=== PATIENT | male | born 1955 | race Caucasian/White ===

== ENCOUNTER 2017-11-02 00:24 | Inpatient (IN) | payer MEDICAID ==
[2017-11-02] VITALS (10 sets, daily range): BP systolic 93–105; BP diastolic 55–67
[~2017-11-02] VITALS: Ht 182.9 cm; Wt 104.0 kg
[2017-11-02] MEDS ORDERED: MODA100 PO (00:26)
[2017-11-02] MEDS ORDERED: ELVI1TAB3 PO (00:26)
[2017-11-02] MEDS ORDERED: depression PO (00:26)
[2017-11-02] MEDS ORDERED: DILTIAZEM HCL 5 MG/ML 5 ML VIAL IVP ONE ×2 (00:45→01:45)
[2017-11-02 01:01] LABS: ANION GAP 8 mmol/L (8-16); BASOPHILS % (AUTO) 0.8 % (0.0-2.0); CALCIUM, TOTAL 9.1 mg/dL (8.8-10.5); CARBON DIOXIDE 29 mmol/L (22-29); CHLORIDE 100 mmol/L (98-107); CREATININE 1.42 mg/dL (0.60-1.30); EOSINOPHILS % (AUTO) 1.2 % (1.0-6.0); GLOMERULAR FILTR. RATE CALC 51 mL/min (>60); GLUCOSE,RANDOM 129 mg/dL (70-110); HEMATOCRIT 38.1 % (41-53); HEMOGLOBIN 13.2 g/dL (13.5-17.5); LYMPHOCYTES # (AUTO) 2.9 K/uL (1.0-4.8); LYMPHOCYTES % (AUTO) 25.1 % (22.0-44.0); MEAN CORPUSCULAR HEMOGLOBIN 29.7 pg (26.0-34.0); MEAN CORPUSCULAR HGB CONC 34.6 G/dL (31.0-37.0); MEAN CORPUSCULAR VOLUME 86 fL (80-100); MONOCYTES % (AUTO) 8.9 % (2.0-9.0); NEUTROPHILS # (AUTO) 7.4 K/uL (1.8-7.7); PLATELET COUNT (AUTO) 213 K/uL (150-450); POTASSIUM 3.4 mmol/L (3.5-5.1); RED BLOOD CELL COUNT(AUTO) 4.43 MIL/uL (4.50-5.90); SODIUM SERUM 137 mmol/L (136-145); UREA NITROGEN, BLOOD 17 mg/dL (7-18)
[2017-11-02 01:03] LABS: PROTHROMBIN TIME 10.7 SEC (9.4-11.6)
[2017-11-02 01:25] LABS: ALANINE AMINOTRANSFERASE 37 U/L (12-78); ALBUMIN 3.6 g/dL (3.4-5.0); ALKALINE PHOSPHATASE 67 U/L (46-116); ASPARTATE AMINOTRANSFERASE 23 U/L (15-37); BILIRUBIN,TOTAL 0.4 mg/dL (0.1-1.0); CREATINE KINASE MB 4.5 ng/mL (0-5); CREATINE KINASE, TOTAL 206 U/L (39-308); TOTAL PROTEIN, SERUM 7.2 g/dL (6.4-8.2)
[2017-11-02] MEDS ORDERED: SODIUM CHLORIDE 0.9% 1,000 ML IV ONE (01:30)
[2017-11-02] MEDS ORDERED: POTASSIUM CHLORIDE 20 MEQ ER TABLET PO ONE (02:00)
[2017-11-02] MEDS ORDERED: DILTIAZEM HCL 125 MG in DEXTROSE 5%-WATER 100 ML IV SCH (02:30)
[2017-11-02] MEDS ORDERED: ENOXAPARIN SODIUM 100 MG/ML PF SYRINGE SQ SCH ×2 (02:45→09:00)
[2017-11-02] MEDS ORDERED: ACETAMINOPHEN 325 MG TABLET PO PRN (02:45)
[2017-11-02] MEDS ORDERED: ONDANSETRON HCL 4 MG/2 ML VIAL IVP PRN (02:45)
[2017-11-02] MEDS ORDERED: 0.9% SODIUM CHLORIDE 10 ML SYRINGE IVP PRN (02:45)
[2017-11-02] MEDS ORDERED: METOPROLOL TARTRATE 25 MG TABLET PO SCH (09:00)
[2017-11-02] MEDS ORDERED: ASPIRIN 325 MG TABLET PO SCH (09:00)
[2017-11-02] MEDS ORDERED: REGADENOSON 0.4 MG/5 ML PF SYRINGE IVP ONE ×2 (13:12→16:50)
[2017-11-02] MEDS ORDERED: AMINOPHYLLINE 25 MG/ML 10 ML VIAL IVP ONE (13:25)
[2017-11-02] MEDS ORDERED: AMINOPHYLLINE 25 MG/ML 10 ML VIAL IV ONE (16:50)
[2017-11-02] MEDS ORDERED: ASPI81 PO (18:22)
== END 2017-11-02 19:00 | disposition home or self-care (01) | DRG 201 ==
LOC: EMS 00:25 → 5N 02:30
PROVIDERS: ADMIT Family Medicine; ATTEND Family Medicine
DX: I48.91 Unspecified atrial fibrillation (principal); I50.9 Heart failure, unspecified; F32.9 Major depressive disorder, single episode, unspecified; N28.9 Disorder of kidney and ureter, unspecified; J98.11 Atelectasis; F17.298 Nicotine dependence, other tobacco product, with other nicotine-induced disorders; R07.89 Other chest pain; Z79.899 Other long term (current) drug therapy
CPT/HCPCS: 78452; 84132; 93005; 93017; 93306; 96361; 96374; 96376; 99291; J0280; J1650; J2785; J3490; J7030; J7060